=== PATIENT | male | born 1960 | race African-American/Black ===

== ENCOUNTER → 2024-05-17 | Outpatient (CLI) | payer MEDICARE, MEDICAID | END | disposition home or self-care (01) | LOC: RADMN 13:54 | PROVIDERS: ATTEND Internal Medicine | DX: S46.811A Strain of other muscles, fascia and tendons at shoulder and upper arm level, right arm, initial encounter (principal); M75.81 Other shoulder lesions, right shoulder; M19.011 Primary osteoarthritis, right shoulder; X58.XXXA Exposure to other specified factors, initial encounter; Y93.89 Activity, other specified; Y92.89 Other specified places as the place of occurrence of the external cause; Y99.8 Other external cause status | CPT/HCPCS: 73221 ==

== ENCOUNTER 2025-08-15 11:54 | Inpatient (IN) | payer MEDICARE, MEDICAID ==
[~2025-08-15] VITALS: Ht 185.4 cm; Wt 104.5 kg
[2025-08-15] MEDS ORDERED: LOSA-382 PO (13:58)
[2025-08-15] MEDS ORDERED: PANT-31 PO (13:58)
[2025-08-15] MEDS ORDERED: TAMS0.4C94 PO (13:58)
[2025-08-15] MEDS ORDERED: ATOR40TA28 PO (13:58)
[2025-08-15] MEDS ORDERED: NIFE10CA50 PO (13:58)
[2025-08-15 14:40] LABS: PLATELET COUNT (AUTO) 232 K/uL (150-450); RED BLOOD CELL COUNT(AUTO) 5.57 MIL/uL (4.50-5.90); RED CELL DISTRIBUTION WIDTH 14.0 % (11.5-14.5); WHITE BLOOD COUNT (AUTO) 5.6 K/uL (4.5-11.0)
[2025-08-15 14:47] LABS: CALCIUM, TOTAL 9.0 mg/dL (8.8-10.5); CREATININE 1.38 mg/dL (0.60-1.30); GLOMERULAR FILTR. RATE CALC > 60 mL/min (>60); GLUCOSE,RANDOM 80 mg/dL (70-110); SODIUM SERUM 140 mmol/L (136-145); UREA NITROGEN, BLOOD 18 mg/dL (7-18)
[2025-08-15 14:52] LABS: ASPARTATE AMINOTRANSFERASE 29.0 U/L (15-37); TOTAL PROTEIN, SERUM 7.6 g/dL (6.4-8.2)
[2025-08-15] MEDS: PANTOPRAZOLE SODIUM 40 MG/VIAL IVP ONE (14:53)
[2025-08-15 14:59] LABS: TROPONIN I-HIGH SENSITIVITY 16 ng/L (<76)
[2025-08-15 15:14] LABS: APPEARANCE,URINE CLEAR (CLEAR); GLUCOSE, URINE (UA) NEGATIVE (NEGATIVE); LEUKOCYTE ESTERASE ,URINE NEGATIVE (NEGATIVE); NITRATE,URINE NEGATIVE (NEGATIVE); OCCULT BLOOD,URINE NEGATIVE (NEGATIVE); SPECIFIC GRAVITIY, URINE 1.022 (1.003-1.030)
[2025-08-15] MEDS ORDERED: SODIUM CHLORIDE 0.9% 100 ML ONE (15:16)
[2025-08-15] MEDS ORDERED: IOHEXOL 350 MG/ML 100 ML VIAL ONE (15:16)
[2025-08-15] MEDS ORDERED: 0.9% SODIUM CHLORIDE 10 ML SYRINGE IVP ONE (15:17)
[2025-08-15] MEDS: PANTOPRAZOLE SODIUM 80 MG in SODIUM CHLORIDE 0.9% 100 ML IV SCH (15:38)
[2025-08-15] MEDS ORDERED: ONDANSETRON HCL 4 MG/2 ML VIAL IVP PRN (20:15)
[2025-08-15] MEDS ORDERED: ACETAMINOPHEN 325 MG TABLET PO PRN (20:15)
[2025-08-15] MEDS ORDERED: BISACODYL 10 MG RECTAL RECTAL SUPPOSITORY PR PRN (20:15)
[2025-08-15] MEDS ORDERED: ZOLPIDEM TARTRATE 5 MG TABLET PO PRN (20:15)
[2025-08-15] MEDS ORDERED: MAGNESIUM HYDROXIDE SUSPENSION 30 ML UDCUP PO PRN (20:15)
[2025-08-15] MEDS: PEG 3350/NA SULF,BICARB,CL/KCL 4000 ML SOLUTION PO ONE (20:37)
[2025-08-15] MEDS: DOCUSATE SODIUM 100 MG CAPSULE PO SCH (20:37)
[2025-08-15 22:20] VITALS: BP 128/73; PULSE 86; RESP 18; TEMP 97.7; O2SAT 95
[2025-08-16] MEDS ORDERED: HEPARIN SODIUM,PORCINE 5,000 UNITS/ML VIAL SQ SCH
[2025-08-16 00:46] VITALS: BP 148/60; PULSE 86; RESP 18; TEMP 97.9; O2SAT 97
[2025-08-16 05:01] VITALS: BP 147/87; PULSE 58; RESP 17; TEMP 97.5; O2SAT 98
[2025-08-16 07:55] VITALS: BP 154/85; PULSE 72; RESP 19; TEMP 98; O2SAT 97
[2025-08-16] MEDS: SODIUM CHLORIDE 0.9% 1,000 ML IV ONE (09:00)
[2025-08-16] MEDS: ATORVASTATIN CALCIUM 40 MG TABLET PO SCH (11:52)
[2025-08-16] MEDS: PANTOPRAZOLE SODIUM 40 MG DR TABLET PO SCH (11:52)
[2025-08-16] MEDS: TAMSULOSIN HCL 0.4 MG CAPSULE PO SCH (11:53)
[2025-08-16 12:00] VITALS: BP 154/90; PULSE 58; RESP 18; TEMP 97.7; O2SAT 98
[2025-08-16 12:08] LABS: PLATELET COUNT (AUTO) 216 K/uL (150-450); RED BLOOD CELL COUNT(AUTO) 5.44 MIL/uL (4.50-5.90); RED CELL DISTRIBUTION WIDTH 14.0 % (11.5-14.5); WHITE BLOOD COUNT (AUTO) 5.9 K/uL (4.5-11.0)
[2025-08-16] MEDS ORDERED: LIDOCAINE/PF 2% 5 ML VIAL CAUDAL ONE (17:24)
[2025-08-16] MEDS ORDERED: PROPOFOL 1% 20 ML VIAL IVP ONE (17:24)
== END 2025-08-16 17:25 | disposition home or self-care (01) | DRG 378 ==
LOC: EMS 12:08 → EDH 20:11 → 5S 22:13
PROVIDERS: ADMIT Internal Medicine; ATTEND Internal Medicine
PROC: 0DJD8ZZ Inspection of Lower Intestinal Tract, Via Natural or Artificial Opening Endoscopic (ICD-10-PCS; principal; 2025-08-16 10:15)
DX: K57.31 Diverticulosis of large intestine without perforation or abscess with bleeding (principal); I69.251 Hemiplegia and hemiparesis following other nontraumatic intracranial hemorrhage affecting right dominant side; I10 Essential (primary) hypertension; E66.9 Obesity, unspecified; E78.5 Hyperlipidemia, unspecified; N40.0 Benign prostatic hyperplasia without lower urinary tract symptoms; K64.8 Other hemorrhoids; E11.9 Type 2 diabetes mellitus without complications; I95.9 Hypotension, unspecified; F32.A Depression, unspecified; Z87.11 Personal history of peptic ulcer disease; Z88.5 Allergy status to narcotic agent; Z68.30 Body mass index [BMI] 30.0-30.9, adult; Z79.899 Other long term (current) drug therapy
CPT/HCPCS: 74177; 80048; 80076; 81003; 83690; 84484; 85025; 85610; 85730; 86850; 86900; 86901; 93005; 96365; 96375; 99285; J2470; J2704; J3490; J7030; J7050